=== PATIENT | male | born 1995 | race Caucasian/White ===

== ENCOUNTER → 2019-06-19 15:51 | Outpatient (CLI) | payer BC, SELFPAY ==
--- NOTE | ~2019-06-19 | XR_ITS ---
EXAMINATION: XR lumbar spine 2-3V DATE: 06/19/2019 16:10 INDICATION: Low back pain, radiculopathy TECHNIQUE: Anteroposterior and lateral views of the lumbar spine, and cone-down lateral view of the l umbosacral junction were obtained. COMPARISON: None. FINDINGS: There is no fracture, dislocation, or subluxation. The vertebral body heights, alignment, a nd intervertebral disc spaces are normal. The paravertebral soft tissues are unremarkable. IMPRESSION: 1. No radiographic correlate for the patient's symptoms. Reviewed, dictated and finalized at location A.
== END ==
PROVIDERS: Visit Provider Chiropractor
DX: M54.5 Low back pain (principal)
CPT/HCPCS: 72100